=== PATIENT | female | born 1945 | race Caucasian/White ===

== ENCOUNTER 2022-12-05 08:05 | Emergency (ER) | payer MEDICARE, BC | END 2022-12-05 09:07 | disposition home or self-care (01) | LOC: JP.ED 08:05 | DX: S90.852A Superficial foreign body, left foot, initial encounter (principal); I10 Essential (primary) hypertension; E03.9 Hypothyroidism, unspecified; Z91.041 Radiographic dye allergy status; Z88.8 Allergy status to other drugs, medicaments and biological substances; Z86.16 Personal history of COVID-19; Z79.899 Other long term (current) drug therapy; W45.8XXA Other foreign body or object entering through skin, initial encounter | CPT/HCPCS: 28190; 99283 ==